=== PATIENT | female | born 1985 | race Caucasian/White ===

== ENCOUNTER 2016-04-30 11:02 | Observation (INO) ==
[2016-04-30] MEDS ORDERED: Ondansetron 4 MG/2 ML VIAL IVP PRN ×2 (13:58→16:56)
[2016-04-30] MEDS ORDERED: *HR* Promethazine 25 MG/ML VIAL IVP PRN ×3 (13:58→16:56)
[2016-04-30] MEDS ORDERED: Naloxone 0.4 MG/ML INJ IVP PRN ×2 (13:58→16:56)
[2016-04-30] MEDS ORDERED: 0.9 % Sodium Chloride 1,000 ML IVC SCH (14:00)
--- NOTE | 2016-04-30 14:07 | General Surg History&Physical ---
<Ayaz Dykes - Last Filed: 04/30/16 14:35> Date of Encounter: 04/30/16 Time of Encounter: 13:30 Assessment and Plan (1) Acute appendicitis Current Visit: No Status: Acute Plan for laparoscopic appendectomy Patient received Zosyn in ED IV fluids Continue zofran/phenergan Supportive care/pain control Qualifiers: Acute appendicitis type: with localized peritonitis Qualified Code(s): K35.3 - Acute appendicitis with localized peritonitis History of Present Illness Chief complaint: abdominal pain HPI: Ms. Boss is a 30 year old female transferred from [place] [facility] where she had presented for acute abdominal pain beginning at approx 6pm last night. Ms. Boss states the pain began periumbilical, keeping her up throughout the night. She states as the pain worsened it has localized to her RLQ. She notes associated nausea, denies vomiting. Denies any dizziness, chest pain, shortness of breath, diarrhea, constipation, dysuria. She states her last BM was yesterday and she was able to eat dinner last night without issue. Patient denies any significant past medical/surgical history. Past Med Surg Social Fam HX - Past Medical History Medical history: no medical history Psychiatric history: no psych history - Past Surgical History Surgical History: no surgical history - Social History Smoking Status: Current every day smoker Packs per day: 1 Smokeless Tobacco Status: No Alcohol use: occasionally (special occasions) Drug use: none Activity Level: Independent ambulation - Family History Father Adopted: [place]: Dev Age: 59 Living Status: Still Living Hx Family Cardiac Disorders: No Hx Family Respiratory Disorders: No Hx Family Cancer: Yes Hx Family GI Disorders: No Hx Family Genitourinary Disorders: No Hx Family Endocrine Disorder: No Hx Family Musculoskeletal Disorders: No Hx Family Neuromuscular Disorders: No Hx Family Neurologic Disorders: No Hx Family HEENT Disorders: No Hx Family Autoimmune Disorders: No Hx Family Reproductive Disorders: No Hx Family Psychosocial Disorders: No Hx Family Medical Disorders: No Medications and Allergies No Known Home Drugs 04/30/16 [History] Allergies No Known Allergies Allergy (Verified 04/30/16 15:00) Review of Systems All systems PM: A 10-system review of systems was performed and is negative for pertinent findings except as documented above in the HPI. - Constitutional no fever(s), no headache(s) - EENT Nose, mouth and throat: nasal congestion, no dysphagia - Cardiovascular no chest pain, no edema - Respiratory no dyspnea - Gastrointestinal abdominal pain, cramping, nausea, no constipation, no diarrhea, no vomiting - Genitourinary Genitourinary: no dysuria, no flank pain Menstruation: period normal - Musculoskeletal no back pain - Neurological no dizziness, no headache(s) General Surgery Exam Initial Vital Signs Temp Pulse Resp BP Pulse Ox 98.2 F 66 14 99/63 96 04/30/16 13:16 04/30/16 13:16 04/30/16 13:16 04/30/16 13:16 04/30/16 13:16 - General physical appearance well developed, well nourished, no distress - Eyes normal ocular movement - ENT normal mucosa, atraumatic, normocephalic - Neck trachea midline - Respiratory normal expansion, normal respiratory effort, clear to auscultation - Cardiovascular Cardiovascular exam: Present: RRR - Abdomen Abdomen general surgery: Present: bowel sounds present, soft, tender. Absent: distended, guarding, rebound Abdominal Tenderness: Present: RLQ - Integumentary Integumentary general surgery: Present: warm and dry, no abnormal pigmentation - Neurologic Present: CN 2-12 grossly intact - Psychiatric Psychiatric general surgery: Present: A&Ox3, speech is normal, memory intact Results - Labs All other labs normal. <Corrine Ogden - Last Filed: 04/30/16 15:28> Assessment and Plan (1) Acute appendicitis Current Visit: No Status: Acute Discussed with the patient that her CT scan and her symptoms are consistent with acute appendicitis. We will plan a laparoscopic appendectomy, possible open. Risks and benefits were discussed with the patient and she wishes to proceed. She will remain nothing by mouth, IV fluid hydration, IV antibiotics, when necessary pain control Antiemetics if necessary The assessment and plan as outlined above was discussed with the patient and/or family members who expressed understanding and agreement. All questions were answered. Qualifiers: Acute appendicitis type: with localized peritonitis Qualified Code(s): K35.3 - Acute appendicitis with localized peritonitis History of Present Illness HPI: Ms. Boss is a 30 year old female who last night started experiencing umbilical crampy pain and pressure. She thought this was likely occurred. Cramps. Since then the pain moved to her right lower quadrant. She denies any nausea or vomiting. She has had no diarrhea or dysuria. She went to [place] [facility] and a CT scan was done treating dilated thickened appendix consistent with acute appendicitis. Her white blood cell Was normal Past Med Surg Social Fam HX - Past Medical History Source: patient Review of Systems All systems PM: A 10-system review of systems was performed and is negative for pertinent findings except as documented above in the HPI. General Surgery Exam Initial Vital Signs Temp Pulse Resp BP Pulse Ox 98.2 F 66 14 99/63 96 04/30/16 13:16 04/30/16 13:16 04/30/16 13:16 04/30/16 13:16 04/30/16 13:16 - General physical appearance well developed, well nourished, no distress - Eyes PERRL, normal ocular movement - ENT normal mucosa, atraumatic, normocephalic - Neck trachea midline - Respiratory normal expansion, clear to auscultation - Cardiovascular Cardiovascular exam: Present: RRR - Abdomen Abdomen general surgery: Present: bowel sounds present, soft, tender. Absent: distended Abdominal Tenderness: Present: RLQ - Integumentary Integumentary general surgery: Present: warm and dry, no abnormal pigmentation - Neurologic Present: CN 2-12 grossly intact - Musculoskeletal Present: normal gait, normal posture - Psychiatric Psychiatric general surgery: Present: A&Ox3, speech is normal, memory intact Results - Labs All other labs normal. - Imaging CT scan - abdomen: report reviewed, image reviewed CT scan - pelvis: report reviewed, image reviewed - Attending Attestation I examined this patient and my medical decision-making was reviewed with the HIDE PASTER/PA/Advanced Practice Nurse/Resident Physician. I agree with the documented findings, disposition and treatment plan as described except to the extent set forth below.
[2016-04-30] MEDS ORDERED: Albuterol 2.5 MG/3 ML NEBULIZER ONE (15:12)
[2016-04-30] MEDS ORDERED: Albuterol 2.5 MG/3 ML NEBULIZER IH ONE (15:26)
--- NOTE | 2016-04-30 15:36 | Anesthesia Evaluation PreOp ---
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 Any Significant HX Other Medical History: Denies Any Significant HX Anesthesia History: No Prior Anesthetic Complications, Past Anesthesia Test: Negative (04/30) Alcohol Use: occasionally (special occasions) Drug use: none Medications and Allergies No Known Home Drugs 04/30/16 [History] Allergies No Known Allergies Allergy (Verified 04/30/16 15:00) - Meds/Allergy Pre-op Review Medications Reviewed: Yes Allergies Reviewed: Yes Beta Blockers on Current Med List: No Anesthesia Results - Labs Laboratory Tests 04/30/16 04/30/16 07:30 07:30 Hgb 13.0 Hct 38.2 Plt Count 127 L Sodium 140 Potassium 3.9 Creatinine 0.73 Anesthesia Exam Vital Signs/O2 Sat/Glucose, Most Current Temp Pulse Resp BP Pulse Ox 04/30/16 13:48 96 04/30/16 13:16 98.2 F 66 14 99/63 96 Height: 1.68 Weight: 62 NPO (# of Hours): >8 - HEENT Pupil (Motor): Pupils equal, EOMI Mallampati: I Teeth: Normal Oral Opening: Greater than 3 - 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
[2016-04-30] MEDS ORDERED: CefOXitin 1,000 MG VIAL ONE (15:42)
[2016-04-30] MEDS ORDERED: *HR* Propofol 200 MG/20 ML VIAL IVP ONE (15:50)
[2016-04-30] MEDS ORDERED: *HR* FentaNYL (PF) 100 MCG/2 ML VIAL ONE (15:50)
[2016-04-30] MEDS ORDERED: *HR* Rocuronium Bromide 50 MG/5 ML VIAL ONE (15:51)
[2016-04-30] MEDS ORDERED: Dexamethasone 4 MG/ML VIAL ONE (15:51)
[2016-04-30] MEDS ORDERED: Ondansetron 4 MG/2 ML VIAL ONE (15:51)
[2016-04-30] MEDS ORDERED: Lidocaine -MPF 2% 2 ML VIAL ONE (15:51)
[2016-04-30] MEDS ORDERED: Ketorolac 30 MG/ML VIAL ONE (15:53)
[2016-04-30] MEDS ORDERED: Piperacillin/Tazobactam 3.375 GM in D5% in Water (Mini-Bag+) 100 ML IVPB SCH (16:00)
[2016-04-30] MEDS ORDERED: Neostigmine Methylsulfate 3 MG/3 ML SYRINGE ONE (16:38)
--- NOTE | 2016-04-30 16:54 | Operative Note ---
Date of procedure: 04/30/16 Pre-op diagnosis: Acute appendicitis Post-op diagnosis: same Procedure: Laparoscopic appendectomy Complications: none immediate Anesthesia: GETA, local Local Anesthetics: 0.5% Sensorcaine HCL SubQ (cc) (18) Surgeon: Corrine Ogden Swatch Maker Other: jennifer Resendiz Estimated blood loss (cc): 5 Specimen: appendix Condition: stable Disposition: PACU Procedure in Detail: The patient was brought into the operating suite and placed supine on the operating table. Sign-in was performed and everyone was in agreement. Anesthesia was induced and patient was endotracheally intubated by anesthesia without incident. An OG tube was placed by anesthesia. The abdomen was prepped and draped in the usual sterile fashion. A timeout was performed and again everyone was in agreement. A supraumbilical incision was made through the skin and the subcutaneous tissue with an 11 blade. Towel clamps were placed on either side of the umbilicus for retraction. S-retractors were used to dissect down to the anterior abdominal wall linea alba fascia. A Veress needle was placed into this incision and a water drop test confirmed placement and the abdomen was insufflated. We then entered the abdomen with the 5 mm 0 degree laparoscope on a 5 mm Optiview trocar. The area under entry was visualized and there was no bleeding and no apparent bowel injury. We placed a suprapubic 5 mm port under direct visualization after first incising the skin with an 11 blade. The laparoscope was placed through this and we exchanged the supraumbilical port for a 12 mm port under direct visualization. We then placed another 5 mm port in the left lower quadrant position under direct visualization after first incising the skin with an 11 blade. The patient was placed in slight Trendelenburg left side down position. The cecum was located as was the appendix. The appendix was grasped and retracted anteriorly and caudally with a laparoscopic Leesa. A [place] was used to dissect between the mesoappendix and the appendix at the base of the cecum. The mesoappendix was transected with a laparoscopic flex-ex ETS stapler using a white load. The appendix was transected at the base of the cecum with the same stapler utilizing a blue load. The appendix was placed in a laparoscopic Endo Catch bag and removed via the supraumbilical incision site. Both staple lines were evaluated and there was no bleeding and both staple lines were intact. The area was irrigated with sterile saline which was then suctioned free from the abdomen. The insufflation was suctioned free from the abdomen and all trochars removed. We closed the abdominal wall at the supraumbilical incision site with an 0 Vicryl [id number] stitch. A 18 cc of 0.5% Marcaine was injected subcutaneously at the 3 port sites. The skin at the two 5 mm port sites was closed with 4-0 Monocryl interrupted subcuticular stitches. The skin at the supraumbilical incision site was closed with a 4-0 Monocryl running subcuticular stitch. Steri-Strips were applied to the wounds. The patient was extubated in the OR and tolerated the procedure well and was taken to PACU after all lap and instrument counts were correct at the end of the case.
[2016-04-30] MEDS ORDERED: *HR* Morphine 2 MG/ML SYRINGE IVP PRN (16:56)
[2016-04-30] MEDS ORDERED: *HR* OxyCODONE/APAP 5/325 TABLET PO PRN (16:56)
--- NOTE | 2016-04-30 16:58 | Discharge Summary ---
<MelviCorrine Meng - Last Filed: 04/30/16 16:56> Date of Encounter: 05/01/16 Time of Encounter: 09:00 - Discharge Diagnosis (1) Acute appendicitis Priority: Primary Status: Acute Qualifiers: Acute appendicitis type: with localized peritonitis Qualified Code(s): K35.3 - Acute appendicitis with localized peritonitis - Discharge Medications Prescriptions: OxyCODONE/APAP 5/325 [Percocet 5/325 MG] 1 each PO Q4HR PRN #30 tablet PRN Reason: Pain Ibuprofen [Motrin] 800 mg PO Q8HR PRN #30 tablet PRN Reason: Pain Docusate [Colace] 100 mg PO BID PRN #30 capsule PRN Reason: Pain Home Medications: Docusate [Colace] 100 mg PO BID PRN #30 capsule 04/30/16 [Rx] OxyCODONE/APAP 5/325 [Percocet 5/325 MG] 1 each PO Q4HR PRN #30 tablet 04/30/16 [Rx] Ibuprofen [Motrin] 800 mg PO Q8HR PRN #30 tablet 05/01/16 [Rx] Allergies/Adverse Reactions: Allergies No Known Allergies Allergy (Verified 04/30/16 15:00) General Surgery Exam Initial Vital Signs Temp Pulse Resp BP Pulse Ox 98.2 F 66 14 99/63 96 04/30/16 13:16 04/30/16 13:16 04/30/16 13:16 04/30/16 13:16 04/30/16 13:16 - General physical appearance well developed, well nourished, no distress - Eyes PERRL, normal ocular movement - ENT normal mucosa, atraumatic, normocephalic - Neck trachea midline - Respiratory normal expansion, clear to auscultation - Cardiovascular Cardiovascular exam: Present: RRR, no murmurs/rubs/gallops - Abdomen Abdomen general surgery: Present: bowel sounds present, soft (Appropriate postoperative tenderness), tender - Incision Incision: Present: clean and dry, intact - Integumentary Integumentary general surgery: Present: warm and dry - Neurologic Present: CN 2-12 grossly intact - Musculoskeletal Present: normal gait - Psychiatric Psychiatric general surgery: Present: A&Ox3, speech is normal Date of admission: 04/30/16 12:58 Primary care physician: Sully Medina, Discharging clinician: Corrine Ogden Anticipated date of discharge: 05/01/16 - Patient Status Disposition: Home, Self-Care Condition: Good Functional capacity at discharge: independent ambulation Overall status at discharge: patient is progressing back to baseline - Discharge Instructions Instructions: Laparoscopic Appendectomy (DC) Follow Up With: Sully Medina MD [Primary Care Provider] - Maria Elena Noble CNP [Advanced Practice Nurse] - (in two weeks for postop check) Forms: Work/School Release Additional Instructions: No lifting more than 20 pounds for 2 weeks. Okay to take a shower in 24 hours. No tub baths or pools for 1 week. Okay to ride in the car wearing a seatbelt and climb steps. No driving until off narcotics for 24 hours and able to react safely Remove Steri-Strips in 1 week. - Diet and Activity Activity: increase activity as tolerated Diet: advance to your usual diet - Hospital Course Hospital course: Ms. Boss is a 30 year old female who was admitted with acute appendicitis on . She underwent a non-complicated laparoscopic appendectomy. She was started on a clear liquid diet and advanced as she tolerated. Initially pain was controlled with IV medication and transition to by mouth. She was up emulating while having appropriate bowel and bladder function. She was discharged home in stable condition with prescriptions for Percocet and Colace - Time Spent with Patient Total time spent providing and/or coordinating discharge services: <Ayaz Dykes - Last Filed: 05/01/16 13:19> - Discharge Diagnosis (1) Acute appendicitis Status: Acute Qualifiers: Acute appendicitis type: with localized peritonitis Qualified Code(s): K35.3 - Acute appendicitis with localized peritonitis General Surgery Exam Initial Vital Signs Temp Pulse Resp BP Pulse Ox 98.2 F 66 14 99/63 96 04/30/16 13:16 04/30/16 13:16 04/30/16 13:16 04/30/16 13:16 04/30/16 13:16 Date of admission: 04/30/16 12:58 Primary care physician: Sully Medina, - Hospital Course Hospital course: Ms. Boss is a 30 year old female - Time Spent with Patient Total time spent providing and/or coordinating discharge services: Less than 30 minutes Labs on day of discharge: Labs from last 24 hours 05/01/16 05/01/16 05/01/16 11:59 04:12 04:12 WBC 4.0 L RBC 3.39 L Hgb 10.6 L 10.4 L D Hct 31.8 L 30.8 L MCV 90.9 MCH 30.7 MCHC 33.8 RDW 11.9 Plt Count 126 L MPV 12.1 Immature Gran % 0.3 Seg Neutrophils % 67.3 Lymphocytes % 24.3 Monocytes % 7.8 Eosinophils % 0.0 Basophils % 0.3 Neutrophils # 2.7 Lymphocytes # 1.0 Monocytes # 0.3 Eosinophils # 0.0 Basophils # 0.0 Sodium 139 Potassium 4.3 Chloride 107 Carbon Dioxide 21 BUN 8 Creatinine 0.62 Est GFR ( Amer) > 60 Est GFR (Non-Af Amer) > 60 BUN/Creatinine Ratio 13 Glucose 95 Calculated Osmolality 286 Calcium 8.4 L
[2016-04-30] MEDS: *HR* HYDROmorphone (PF) 1 MG/ML SYRINGE IVP PRN ×2 (16:59→17:04)
[2016-04-30] MEDS: 0.9 % Sodium Chloride 1,000 ML IVC SCH (17:41)
[2016-05-01] MEDS: 0.9 % Sodium Chloride 1,000 ML IVC SCH (01:59)
[2016-05-01 04:41] LABS: Basophils % 0.3 %; Hematocrit 30.8 % (35.3-44.9); Hemoglobin 10.4 g/dL (11.5-15.4); Immature Granulocytes % 0.3 % (0-4); Lymphocytes % 24.3 %; Mean Corpuscular HGB Conc 33.8 g/dL (31.6-35.5); Mean Corpuscular Hemoglobin 30.7 pg (28.0-33.3); Mean Corpuscular Volume 90.9 fL (83.0-100.0); Mean Platelet Volume 12.1 fL (9.4-12.4); Monocytes # 0.3 K/mcL (0.0-1.3); Monocytes % 7.8 %; Neutrophils # 2.7 K/mcL (1.6-8.9); Platelet Count 126 K/mcL (140-400); Red Blood Count 3.39 M/mcL (3.82-4.97); Red Cell Distribution Width 11.9 % (11.5-14.5); Segmented Neutrophils % 67.3 %
[2016-05-01 04:48] LABS: BUN/Creatinine Ratio 13 (6-26); Blood Urea Nitrogen 8 mg/dL (7-20); Calcium 8.4 mg/dL (8.6-10.8); Carbon Dioxide 21 mEq/L (19-29); Chloride 107 mEq/L (98-109); Glucose 95 mg/dL (70-99); Osmolality,Calculated 286 (280-300); Potassium 4.3 mEq/L (3.5-4.5); Sodium 139 mEq/L (136-145); eGFR For African Americans > 60 (> 60); eGFR For Non-African Americans > 60 (> 60)
[2016-05-01] MEDS ORDERED: Pantoprazole 40 MG VIAL IVP SCH ×2 (09:00)
[2016-05-01 11:02] VITALS: BP 97/58
[2016-05-01 12:17] LABS: Hematocrit 31.8 % (35.3-44.9); Hemoglobin 10.6 g/dL (11.5-15.4)
== END 2016-05-01 14:38 | disposition home or self-care (01) ==
LOC: 3ANU
PROVIDERS: ADMIT Surgery; ATTEND Surgery